=== PATIENT | male | born 1990 | race Caucasian/White ===

== ENCOUNTER 2020-11-10 19:15 | Emergency (ER) | payer OTHER ==
[2020-11-10] MEDS ORDERED: LORazepam 2 MG/ML SDV IVPUSH ONE (19:24)
[2020-11-10 20:04] LABS: ANION GAP 13.6 mmol/L (5-15); CHLORIDE,CL 100 mmol/L (98-107); SODIUM,NA 138 mmol/L (136-145)
--- NOTE | 2020-11-10 20:20 | EDM.PDOC ---
ED HPI GENERAL MEDICAL PROBLEM - General Stated Complaint: DIZZY, NAUSEA Time Seen by Provider: 11/10/20 19:15 Source of Information: Reports: Patient History Limitations: Reports: No Limitations - History of Present Illness INITIAL COMMENTS - FREE TEXT/NARRATIVE: Patient comes emergency department today by ambulance from work with complaints of inability to move his legs shaking and dizziness. As patient had a rather abrupt onset of sudden paresthesias to his bilateral lower extremities shaking of his hands and his feet. He had numbness and tingling to his hands and his feet. He felt very anxious and shaky. He relates that he was unable to stand because his legs were so stiff and shaky. He does complain of a frontal headache and some blurry vision. No confusion. No loss of conscious. No visual acuity changes. No weakness dizziness lightheadedness. No fever no chills. No chest pain no shortness of breath or difficulty breathing. No cough or congestion. No palpitations. No abdominal pain nausea or vomiting. No hematuria dysuria or urinary frequency. No black or tarry stools. He felt just fine over the past couple of days without any complaints. Suddenly at 1530 he was told his boss was let go and he became very anxious and then the headache and then the paraesthesias started. He does have a history of anxiety and does have some increased anxiety over the past couple of days and years with multiple deaths in his family and takes multiple medications for his chronic anxiety. His boss was let go from his job and this is put quite a bit of stress on him and he is very anxious and nervous about this. NO COVID exposure no COVID symptoms. Frontal headache Pain Score (Numeric/FACES): 7 - Related Data Home Meds: Home Meds LORazepam [Lorazepam] 0.5 mg PO TID PRN #9 tablet 11/10/20 [Rx] ED ROS GENERAL - Review of Systems Review Of Systems: Comprehensive ROS is negative, except as noted in HPI. ED EXAM, NEURO - Physical Exam Exam: See Below Exam Limited By: No Limitations General Appearance: Alert, WD/WN, Anxious Eye Exam: Bilateral Eye: EOMI, PERRL Ears: Normal External Exam, Normal TMs Nose: Normal Inspection, Nasal Swelling Throat/Mouth: Normal Inspection, Normal Lips, Normal Teeth, Normal Gums, Normal Voice, No Airway Compromise Head Exam: Atraumatic, Normocephalic Neck: Normal Inspection, Supple, Non-Tender, Full Range of Motion Respiratory/Chest: No Respiratory Distress, Lungs Clear, Normal Breath Sounds, Chest Non-Tender, Other (Tachypnea without labored or distress. Very shallow rapid none distress respirations. ) Cardiovascular: Normal Peripheral Pulses, Regular Rate, Rhythm, Tachycardia GI/Abdominal: Normal Bowel Sounds, Soft, Non-Tender (Male) Exam: Deferred Rectal (Males) Exam: Deferred Neurological: Alert, CN II-XII Intact, Normal Reflexes, Oriented x 3, Other (The patient is very anxious and jittery. He has both of his feet and plantarflexion constantly. He is unable to lift up either of his extremities off the bed although there is no muscle flexion or press down with the contralateral leg concerning for lack of effort to raise his legs. His normal sensation. He has carpopedal spasms.). No: Normal Mood/Affect (Patient is clearly quite anxious.), Ataxia DTR: 2+: Patella (R), Patella (L), Achilles (R), Achilles (L) Back Exam: Normal Inspection, Full Range of Motion Extremities: Normal Inspection (Than the neurological changes as above atraumatic extremities.) Psychiatric: Anxious Skin Exam: Warm, Dry, Intact, Normal Color, No Rash Course - Vital Signs Last Recorded V/S: Last Vital Signs Temp 97.2 F 11/10/20 19:15 Pulse 110 H 11/10/20 19:15 Resp 24 H 11/10/20 19:15 BP 161/96 H 11/10/20 19:15 Pulse Ox 99 11/10/20 19:15 - Orders/Labs/Meds Labs: Laboratory Tests 11/10/20 11/10/20 11/10/20 Range/Units 19:37 19:37 20:21 WBC 7.2 (4.0-10.0) x10^3/uL RBC 5.02 (4.5-6.0) x10^6/uL Hgb 16.0 (14.0-18.0) g/dL Hct 45.4 (40.0-52.0) % MCV 90.4 (78.0-93.0) fL MCH 31.9 (26.0-32.0) pg MCHC 35.2 (32.0-36.0) g/dL RDW Coeff of Tanner 12.5 (10.0-15.0) % Plt Count 213 (130-400) x10^3/uL Neut % (Auto) 63.6 (50.0-80.0) % Lymph % (Auto) 26.4 (25.0-50.0) % Pope % (Auto) 9.3 (2.0-11.0) % Eos % (Auto) 0.4 (0.0-4.0) % Baso % (Auto) 0.3 (0.2-1.2) % Sodium 138 (136-145) mmol/L Potassium 3.6 (3.5-5.1) mmol/L Chloride 100 (98-107) mmol/L Carbon Dioxide 28 (21-32) mmol/L Anion Gap 13.6 (5-15) mmol/L BUN 14 (7-18) mg/dL Creatinine 0.9 (0.70-1.30) mg/dL Est Cr Clr Drug Dosing TNP Estimated GFR (MDRD) > 60 Glucose 127 H (74-106) mg/dL Calcium 8.9 (8.5-10.1) mg/dL Corrected Calcium 8.18 L (8.5-10.1) mg/dL Magnesium 1.8 (1.8-2.4) mg/dL Total Bilirubin 1.0 (0.2-1.0) mg/dL AST 19 (15-37) U/L ALT 43 (16-63) U/L Alkaline Phosphatase 88 (46-116) U/L Total Protein 7.8 (6.4-8.2) g/dL Albumin 4.9 (3.4-5.0) g/dL Globulin 2.9 Albumin/Globulin Ratio 1.69 Urine Opiates Screen (NEAGTIVE) Ur Buprenorphine Scrn (NEGATIVE) Ur Oxycodone Screen (NEGATIVE) Ur EDDP (Meth Metab) (NEGATIVE) Urine Methadone Screen (NEGATIVE) Ur Barbiturates Screen (NEGATIVE) Ur Tricyclics Screen (NEGATIVE) Ur Phencyclidine Scrn (NEGATIVE) Ur Amphetamine Screen (NEGATIVE) U Methamphetamines Scrn (NEGATIVE) Urine MDMA Screen (NEGATIVE) U Benzodiazepines Scrn (NEGATIVE) U Cocaine Metab Screen (NEGATIVE) U Marijuana (THC) Screen (NEGATIVE) SARS CoV-2 RNA Rapid OSWALDO Negative (NEGATIVE) 11/10/20 Range/Units 20:30 WBC (4.0-10.0) x10^3/uL RBC (4.5-6.0) x10^6/uL Hgb (14.0-18.0) g/dL Hct (40.0-52.0) % MCV (78.0-93.0) fL MCH (26.0-32.0) pg MCHC (32.0-36.0) g/dL RDW Coeff of Tanner (10.0-15.0) % Plt Count (130-400) x10^3/uL Neut % (Auto) (50.0-80.0) % Lymph % (Auto) (25.0-50.0) % Pope % (Auto) (2.0-11.0) % Eos % (Auto) (0.0-4.0) % Baso % (Auto) (0.2-1.2) % Sodium (136-145) mmol/L Potassium (3.5-5.1) mmol/L Chloride (98-107) mmol/L Carbon Dioxide (21-32) mmol/L Anion Gap (5-15) mmol/L BUN (7-18) mg/dL Creatinine (0.70-1.30) mg/dL Est Cr Clr Drug Dosing Estimated GFR (MDRD) Glucose (74-106) mg/dL Calcium (8.5-10.1) mg/dL Corrected Calcium (8.5-10.1) mg/dL Magnesium (1.8-2.4) mg/dL Total Bilirubin (0.2-1.0) mg/dL AST (15-37) U/L ALT (16-63) U/L Alkaline Phosphatase (46-116) U/L Total Protein (6.4-8.2) g/dL Albumin (3.4-5.0) g/dL Globulin Albumin/Globulin Ratio Urine Opiates Screen Negative (NEAGTIVE) Ur Buprenorphine Scrn Negative (NEGATIVE) Ur Oxycodone Screen Negative (NEGATIVE) Ur EDDP (Meth Metab) Negative (NEGATIVE) Urine Methadone Screen Negative (NEGATIVE) Ur Barbiturates Screen Negative (NEGATIVE) Ur Tricyclics Screen Negative (NEGATIVE) Ur Phencyclidine Scrn Negative (NEGATIVE) Ur Amphetamine Screen Negative (NEGATIVE) U Methamphetamines Scrn Negative (NEGATIVE) Urine MDMA Screen Negative (NEGATIVE) U Benzodiazepines Scrn Negative (NEGATIVE) U Cocaine Metab Screen Negative (NEGATIVE) U Marijuana (THC) Screen Negative (NEGATIVE) SARS CoV-2 RNA Rapid OSWALDO (NEGATIVE) Meds: Medications Discontinued Medications Generic Name Dose Route Start Last Admin Trade Name Collette PRN Reason Stop Dose Admin Lorazepam 1 mg 11/10/20 19:24 Ativan IVPUSH 11/10/20 19:25 STAT ONE Lorazepam 1 packet 11/10/20 20:26 Take Home: Lorazepam 0.5 Mg, 2 Tab Pack PO 11/10/20 20:27 ONETIME ONE - Re-Assessments/Exams Free Text/Narrative Re-Assessment/Exam: 11/10/20 20:23 Really do not see any signs of concern for a stroke in this with his anxiety as well as his constant extension of his lower extremities I think this is more of an anxiety component. Labs drawn. 1 mg Ativan was given with complete resolution is of his symptoms. He was able to stand up and ambulate without difficulty following the Ativan. His tachypnea has resolved. His shaking has resolved. His constant pedal plantarflexion is resolved his carpopedal spasms is resolved. His laboratory evaluation is really unremarkable. 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 11/10/20 21:20 He is absolutely symptoms free. His COVID test is negative. UDS negative. This is most likely a panic attack with psychomotor dysfunction from his panic attack. Could be a complex migraine with his headache as well although he did not receive anything for his headache and with his history of anxiety and panic attacks is more likely to be a panic attack. His symptoms have completely resolved. He feels back to baseline. We will give a short course of Ativan to help with his increased anxiety due to the change at work. Caution with sedation adding this with his Klonopin. He is understanding this his questions are answered. Departure - Departure Time of Disposition: 20:15 Disposition: Home, Self-Care 01 Clinical Impression: Panic attack - Discharge Information Instructions: Panic Attack, [id number] Referrals: Mj Martinez NP [Primary Care Provider] - Additional Instructions: Home rest tonight. Lots of fluids. Consider counseling to help manage your stress levels. Lorazepam, 1 tablet three times a day as needed for anxiety. Caution sedation with this medication. No drinking alcohol or driving after taking this medication. Starter pack sent home from the ED and RX sent to [facility]. #[facility]. Return to the ED if new or worsening symptoms. Follow up with PCP in the next week for recheck and continued therapy possibilities. Sepsis Event Note (ED) - Focused Exam Vital Signs: Vital Signs Temp Pulse Resp BP Pulse Ox 11/10/20 19:15 97.2 F 110 H 24 H 161/96 H 99
[2020-11-10] MEDS ORDERED: Take Home: LORazepam 0.5 MG Tab, 2 Tab Pack PO ONE (20:26)
[2020-11-10 20:58] LABS: BARBITURATE SCREEN,URINE NEGATIVE (NEGATIVE); BENZODIAZEPINES SCREEN,URINE NEGATIVE (NEGATIVE); EDDP,URINE SCREEN NEGATIVE (NEGATIVE); METHAMPHETAMINE SCREEN, URINE NEGATIVE (NEGATIVE); TCA SCREEN,URINE NEGATIVE (NEGATIVE); THC SCREEN,URINE 50 NG/ML NEGATIVE (NEGATIVE)
== END 2020-11-10 21:38 | disposition home or self-care (01) ==
LOC: VM.ED 19:15
DX: F41.0 Panic disorder [episodic paroxysmal anxiety] (principal); Z20.822 Contact with and (suspected) exposure to COVID-19
CPT/HCPCS: 36415; 80053; 80305-QW; 83735; 85025; 96374; 99284; 99284-25; A9270-GY; J2060; U0002

== ENCOUNTER 2021-06-13 10:04 | Emergency (ER) | payer OTHER ==
[2021-06-13] MEDS ORDERED: LORazepam 1 MG Tab PO ONE (10:15)
[2021-06-13 10:53] LABS: BARBITURATE SCREEN,URINE NEGATIVE (NEGATIVE); BENZODIAZEPINES SCREEN,URINE NEGATIVE (NEGATIVE); METHAMPHETAMINE SCREEN, URINE NEGATIVE (NEGATIVE); THC SCREEN,URINE 50 NG/ML NEGATIVE (NEGATIVE)
[2021-06-13 10:54] LABS: BUPRENORPHINE SCREEN,URINE NEGATIVE (NEGATIVE)
[2021-06-13 11:16] LABS: ANION GAP 17.6 mmol/L (5-15); CHLORIDE,CL 101 mmol/L (98-107); SODIUM,NA 139 mmol/L (136-145)
--- NOTE | 2021-06-13 11:30 | EDM.PDOC ---
ED HPI GENERAL MEDICAL PROBLEM - General Chief Complaint: Behavioral/Psych Stated Complaint: Anxiety Attack Time Seen by Provider: 06/13/21 10:45 Source of Information: Reports: Patient History Limitations: Reports: No Limitations - History of Present Illness INITIAL COMMENTS - FREE TEXT/NARRATIVE: Pt. presents to ER via EMS with complaints of acute anxiety attack. Pt. has a hi story of severe anxiety, and has been seen in ER for acute anxiety/panic attack in the past. He states that he was in a meeting today which was extremely stressful. He states that his job at [employer] is very difficult for his and he states that he has recently felt like changing jobs this year. He feels this stress exacerbated his symptoms today. Pt. was noted to be experiencing carpal-pedal spasms and hyperventilation according to EMS. He was able to control his breathing somewhat with coaching. He denies any chest pain or shortness of breath once his breathing was controlled. Pt. denies any suicidal or homicidal ideation. Onset: Today Location: Reports: Generalized - Related Data Allergies Allergy/AdvReac Type Severity Reaction Status Date / Time codeine Allergy Nausea and Verified 06/13/21 10:35 Vomiting Home Meds: Home Meds LORazepam [Lorazepam] 0.5 mg PO TID PRN #9 tablet 11/10/20 [Rx] Venlafaxine [Effexor XR 24 Hr] 37.5 mg PO DAILY 11/10/20 [History] Venlafaxine [Effexor XR] 150 mg PO DAILY 11/10/20 [History] clonazePAM [Klonopin] 1 mg PO BID PRN 11/10/20 [History] lamoTRIgine [LaMICtal] 150 mg PO BID 11/10/20 [History] Past Medical History Psychiatric History: Reports: Anxiety, Depression, Panic Attack Social & Family History - Tobacco Use Tobacco Use Status *Q: Never Tobacco User - Recreational Drug Use Recreational Drug Use: No ED ROS GENERAL - Review of Systems Review Of Systems: See Below Constitutional: Reports: No Symptoms HEENT: Reports: No Symptoms Respiratory: Reports: No Symptoms. Denies: Shortness of Breath, Wheezing, Pleuritic Chest Pain, Cough Cardiovascular: Reports: Chest Pain, Lightheadedness. Denies: Blood Pressure Problem, Claudication, Dyspnea on Exertion, Edema, Orthopnea, Palpitations, PND Endocrine: Reports: No Symptoms GI/Abdominal: Reports: No Symptoms : Reports: No Symptoms Musculoskeletal: Reports: Other (spasms to hands and feet) Skin: Reports: No Symptoms Neurological: Reports: Paresthesia, Tremors Psychiatric: Reports: Agitation, Anxiety. Denies: Homicidal Ideation, Suicidal Ideation Hematologic/Lymphatic: Reports: No Symptoms Immunologic: Reports: No Symptoms ED EXAM, GENERAL - Physical Exam Exam: See Below Exam Limited By: No Limitations General Appearance: Alert, WD/WN, Moderate Distress Head: Atraumatic, Normocephalic Respiratory/Chest: No Respiratory Distress, Lungs Clear, Normal Breath Sounds, No Accessory Muscle Use, Chest Non-Tender Cardiovascular: Normal Peripheral Pulses, Regular Rate, Rhythm, No Edema, No JVD, No Murmur Peripheral Pulses: 4+: Radial (R) GI/Abdominal: Soft, Non-Tender, No Distention, No Mass (Male) Exam: Deferred Rectal (Males) Exam: Deferred Back Exam: CVA Tenderness (L) Extremities: Normal Inspection, No Pedal Edema, Normal Capillary Refill, Other (carpal pedal spasms all extremities) Neurological: Alert, Oriented, CN II-XII Intact, Normal Reflexes, No Motor/Sensory Deficits Psychiatric: Anxious, Tearful Skin Exam: Warm, Dry, Intact, Normal Color, No Rash Lymphatic: No Adenopathy Course - Vital Signs Last Recorded V/S: Last Vital Signs Temp 37.2 C 06/13/21 10:37 Pulse 87 06/13/21 10:37 Resp 18 06/13/21 10:37 BP 149/95 H 06/13/21 10:37 Pulse Ox 98 06/13/21 10:37 - Orders/Labs/Meds Labs: Laboratory Tests 06/13/21 06/13/21 06/13/21 Range/Units 10:30 10:30 10:33 WBC 5.6 (4.0-10.0) x10^3/uL RBC 5.33 (4.5-6.0) x10^6/uL Hgb 17.3 (14.0-18.0) g/dL Hct 48.5 (40.0-52.0) % MCV 91.0 (78.0-93.0) fL MCH 32.5 H (26.0-32.0) pg MCHC 35.7 (32.0-36.0) g/dL RDW Coeff of Tanner 12.3 (10.0-15.0) % Plt Count 200 (130-400) x10^3/uL Neut % (Auto) 45.3 L (50.0-80.0) % Lymph % (Auto) 39.4 (25.0-50.0) % Ransom % (Auto) 13.7 H (2.0-11.0) % Eos % (Auto) 1.4 (0.0-4.0) % Baso % (Auto) 0.2 (0.2-1.2) % Sodium 139 (136-145) mmol/L Potassium 3.6 (3.5-5.1) mmol/L Chloride 101 (98-107) mmol/L Carbon Dioxide 24 (21-32) mmol/L Anion Gap 17.6 H (5-15) mmol/L BUN 18 (7-18) mg/dL Creatinine 1.0 (0.70-1.30) mg/dL Est Cr Clr Drug Dosing 116.09 mL/min Estimated GFR (MDRD) > 60 Glucose 106 H (70-99) mg/dL Calcium 9.6 (8.5-10.1) mg/dL Corrected Calcium 9.0 (8.5-10.1) mg/dL Total Bilirubin 0.8 (0.2-1.0) mg/dL AST 24 (15-37) U/L ALT 54 (16-63) U/L Alkaline Phosphatase 100 (46-116) U/L Total Protein 7.5 (6.4-8.2) g/dL Albumin 4.8 (3.4-5.0) g/dL Globulin 2.7 Albumin/Globulin Ratio 1.78 Urine Color Yellow (YELLOW) Urine Appearance Clear (CLEAR) Urine pH 7.5 (5.0-8.0) Ur Specific Aurelia 1.015 Urine Protein Negative (NEGATIVE) mg/dL Urine Glucose (UA) Negative (NEGATIVE) mg/dL Urine Ketones Negative (NEGATIVE) mg/dL Urine Occult Blood Negative (NEGATIVE) Urine Nitrite Negative (NEGATIVE) Urine Bilirubin Negative (NEGATIVE) Urine Urobilinogen 0.2 (0.2) EU/dL Ur Leukocyte Esterase Negative (NEGATIVE) Urine Opiates Screen (NEGATIVE) Ur Buprenorphine Scrn (NEGATIVE) Ur Oxycodone Screen (NEGATIVE) Urine Methadone Screen (NEGATIVE) Ur Barbiturates Screen (NEGATIVE) Ur Phencyclidine Scrn (NEGATIVE) Ur Amphetamine Screen (NEGATIVE) U Methamphetamines Scrn (NEGATIVE) Urine MDMA Screen (NEGATIVE) U Benzodiazepines Scrn (NEGATIVE) U Cocaine Metab Screen (NEGATIVE) U Marijuana (THC) Screen (NEGATIVE) 06/13/21 Range/Units 10:33 WBC (4.0-10.0) x10^3/uL RBC (4.5-6.0) x10^6/uL Hgb (14.0-18.0) g/dL Hct (40.0-52.0) % MCV (78.0-93.0) fL MCH (26.0-32.0) pg MCHC (32.0-36.0) g/dL RDW Coeff of Tanner (10.0-15.0) % Plt Count (130-400) x10^3/uL Neut % (Auto) (50.0-80.0) % Lymph % (Auto) (25.0-50.0) % Ransom % (Auto) (2.0-11.0) % Eos % (Auto) (0.0-4.0) % Baso % (Auto) (0.2-1.2) % Sodium (136-145) mmol/L Potassium (3.5-5.1) mmol/L Chloride (98-107) mmol/L Carbon Dioxide (21-32) mmol/L Anion Gap (5-15) mmol/L BUN (7-18) mg/dL Creatinine (0.70-1.30) mg/dL Est Cr Clr Drug Dosing mL/min Estimated GFR (MDRD) Glucose (70-99) mg/dL Calcium (8.5-10.1) mg/dL Corrected Calcium (8.5-10.1) mg/dL Total Bilirubin (0.2-1.0) mg/dL AST (15-37) U/L ALT (16-63) U/L Alkaline Phosphatase (46-116) U/L Total Protein (6.4-8.2) g/dL Albumin (3.4-5.0) g/dL Globulin Albumin/Globulin Ratio Urine Color (YELLOW) Urine Appearance (CLEAR) Urine pH (5.0-8.0) Ur Specific Aurelia Urine Protein (NEGATIVE) mg/dL Urine Glucose (UA) (NEGATIVE) mg/dL Urine Ketones (NEGATIVE) mg/dL Urine Occult Blood (NEGATIVE) Urine Nitrite (NEGATIVE) Urine Bilirubin (NEGATIVE) Urine Urobilinogen (0.2) EU/dL Ur Leukocyte Esterase (NEGATIVE) Urine Opiates Screen Negative (NEGATIVE) Ur Buprenorphine Scrn Negative (NEGATIVE) Ur Oxycodone Screen Negative (NEGATIVE) Urine Methadone Screen Negative (NEGATIVE) Ur Barbiturates Screen Negative (NEGATIVE) Ur Phencyclidine Scrn Negative (NEGATIVE) Ur Amphetamine Screen Negative (NEGATIVE) U Methamphetamines Scrn Negative (NEGATIVE) Urine MDMA Screen Negative (NEGATIVE) U Benzodiazepines Scrn Negative (NEGATIVE) U Cocaine Metab Screen Negative (NEGATIVE) U Marijuana (THC) Screen Negative (NEGATIVE) Meds: Medications Discontinued Medications Generic Name Dose Route Start Last Admin Trade Name Freq PRN Reason Stop Dose Admin Lorazepam 1 mg 06/13/21 10:15 06/13/21 10:23 Lorazepam 1 Mg Tab PO 06/13/21 10:16 1 mg ONETIME ONE Administration Departure - Departure Time of Disposition: 12:30 Disposition: Home, Self-Care 01 Clinical Impression: Anxiety, Panic disorder - Discharge Information Instructions: Generalized Anxiety Disorder, Adult Referrals: Mj Martinez NP [Primary Care Provider] - Forms: ED Department Discharge Additional Instructions: Home to rest. Off work today. recheck in clinic in 7-10 days. Sepsis Event Note (ED) - Evaluation Sepsis Screening Result: No Definite Risk - Focused Exam Vital Signs: Vital Signs Temp Pulse Resp BP Pulse Ox 06/13/21 10:37 37.2 C 87 18 149/95 H 98 - Problem List Review Problem List Initiated/Reviewed/Updated: Yes - Assessment/Plan Plan: Home to rest. Off work today. recheck in clinic in 7-10 days.
== END 2021-06-13 11:37 | disposition home or self-care (01) ==
LOC: VM.ED 10:04 → SUPCPDRO 10:04 → VM.ED 11:37
DX: F41.0 Panic disorder [episodic paroxysmal anxiety] (principal); Z88.5 Allergy status to narcotic agent; Z79.899 Other long term (current) drug therapy
CPT/HCPCS: 36415; 80053; 80305-QW; 81003; 85025; 99283; 99284; A9270-GY